=== PATIENT | female | born 1960 | race Caucasian/White ===

== ENCOUNTER 2024-03-04 09:44 | Inpatient (IN) | payer MEDICARE, MEDICAID, SELFPAY ==
[2024-03-04] VITALS (14 sets, daily range): BP systolic 124–143; BP diastolic 57–76; PULSE 65–87; RESP 16–26; TEMP 36.2–36.9; O2SAT 2–96; BMI 43.3; BMI 43.6
--- NOTE | ~2024-03-04 | XR_ITS ---
EXAMINATION: XR CHEST CLINICAL INFORMATION: SOB COMPARISON: None available. TECHNIQUE: Frontal view of the chest was obtained. FINDINGS: Cardiomegaly. Prominent pulmonary vasculature. No focal consolidation. No pleural effusion. No pneumothorax. No acute osseous abnormality. XR/XR chest 1V IMPRESSION: Cardiomegaly and prominent pulmonary vasculature. Electronically signed by: Neri Mcdowell MD 03/04/2024 11:42 AM [facility] [place]
--- NOTE | ~2024-03-04 | CT_ITS ---
EXAMINATION: CT ANGIOGRAM OF THE CHEST WITH AND WITHOUT CONTRAST (CT PULMONARY ANGIOGRAM FOR PE) CLINICAL INFORMATION: sob COMPARISON: None available. TECHNIQUE: Prior to contrast administration, noncontrast localization images were obtained. Subsequently, multidetector volumetric imaging was performed from the thoracic inlet to below the diaphragms following the administration of 65 mL Omnipaque 350 intravenous contrast. No contrast reaction reported Sagittal, coronal, and MIP oblique sagittal reformatted images were obtained on the CT workstation, uploaded to PACS, and reviewed. This CT examination was performed using dose optimization techniques as appropriate, variously including the following: *Automated exposure control *Adjustment of mA and/or kV according to patient size (this includes techniques or standardized protocols for targeted exams where dose is matched to indication/reason for exam; i.e. extremities or head) *Use of iterative reconstruction technique Total exam dose-length product 380 mGy-cm FINDINGS: QUALITY OF STUDY/CONTRAST BOLUS: Satisfactory. PULMONARY ARTERIES: No pulmonary emboli. THORACIC AORTA: No aneurysm. LUNG: No focal consolidation, nodules or masses. There is mild bronchial wall thickening in the bilateral perihilar regions extending into the lung parenchyma most consistent with underlying bronchitis/reactive airway disease. Segmental areas of atelectasis in the bilateral lower lobes PLEURA: No pleural effusion or pneumothorax. MEDIASTINUM: Normal heart size. No pericardial effusion. No hilar or mediastinal lymphadenopathy. No evidence of septal bowing or right heart strain. CORONARY ARTERY CALCIFICATION: None visualized on this study. CHEST WALL/AXILLA: No axillary or internal mammary lymphadenopathy. OSSEOUS STRUCTURES: No acute or suspicious osseous abnormality. UPPER ABDOMEN: Unremarkable. No reflux of contrast into the hepatic veins to suggest elevated right heart pressures. CT/CT angio chest PE protocol IMPRESSION: 1. No evidence of pulmonary embolism. 2. Bronchial wall thickening in the bilateral perihilar regions extending into the lung parenchyma most consistent with underlying bronchitis/reactive airway disease. VTE: negative. Electronically signed by: Jake Nesbitt MD 03/07/2024 04:50 PM EST
--- NOTE | 2024-03-04 10:00 | ECG_ITS ---
Test Reason : chest pain Blood Pressure : / mmHG Vent. Rate : 075 BPM Atrial Rate : 075 BPM P-R Int : 138 ms QRS Dur : 082 ms QT Int : 362 ms P-R-T Axes : 085 034 039 degrees QTc Int : 404 ms Normal sinus rhythm Normal ECG No previous ECGs available Referred By: Shahram Glover Electronically Signed By:MATTHEW LYNN MD
--- NOTE | 2024-03-04 10:00 | ED.SOB ---
HPI - SOB/Dyspnea General Chief Complaint: Upper Respiratory Symptoms Stated Complaint: SOB,93% 6LPM,OLLIE WHEEZE,DUO,FROM DR OFFICE PER EMS Time Seen by Provider: 03/04/24 09:52 Source: patient Mode of arrival: ambulatory Limitations: no limitations History of Present Illness HPI Narrative: this is a 63 years old patient presented to the emergency department with a chief complaint of shortness of breath she was brought here by the medical radiation therapist, she came from the doctor office she had an O2 sat of 85% at the Office. She was given an albuterol treatment Solu-Medrol. She has history of COPD she smokes daily MD elicited complaint: shortness of breath and cough Pertinent past history: COPD Onset (ago): day(s) Timing: constant Severity: moderate Exacerbating factors: nothing Relieving factors: nothing Known history of: COPD Associated symptoms: denies other symptoms Related Data Home oxygen amount: none Home Medications ?Medication ?Instructions ?Recorded ?Confirmed albuterol sulfate 90 mcg/actuation 1 puff inhalation Q4H PRN 03/04/24 03/04/24 aerosol inhaler Shortness Of Breath Or Wheezing aripiprazole 30 mg tablet 30 mg PO DAILY 03/04/24 03/04/24 atorvastatin 10 mg tablet 10 mg PO DAILY 03/04/24 03/04/24 citalopram 20 mg tablet 20 mg PO DAILY 03/04/24 03/04/24 divalproex 500 mg tablet,extended 1,000 mg PO BEDTIME 03/04/24 03/04/24 release 24 hr fluticasone furoate 200 1 ea inhalation DAILY 03/04/24 03/04/24 mcg-vilanterol 25 mcg/dose inhalation powder (Breo Ellipta) furosemide 20 mg tablet 20 mg PO DAILY 03/04/24 03/04/24 meloxicam 7.5 mg tablet 7.5 mg PO DAILY 03/04/24 03/04/24 prazosin 1 mg capsule 1 mg PO BID 03/04/24 03/04/24 tiotropium bromide 1.25 2 puff inhalation DAILY 03/04/24 03/04/24 mcg/actuation mist for inhalation (Spiriva Respimat) Allergies Allergy/AdvReac Type Severity Reaction Status Date / Time chocolate Allergy Unknown Verified 03/04/24 09:56 Review of Systems Constitutional: Constitutional: Reports no additional constitutional complaints ENT: Reports system reviewed and no additional complaints, except as documented Respiratory: Respiratory: Reports no additional respiratory complaints, Reports chest congestion and Reports cough Integumentary/Breasts: Skin/Breast: Reports system reviewed and no additional complaints, except as docu [facility] Past Medical History [facility] Narrative: copd not on 02 Social History Social History (Updated 03/04/24 @ 11:53 by Silvana Ventura NP) Patient Tobacco Use Status: Current everyday Tobacco user Tobacco use type: Cigarette Cigarette Packs Per Day: 1 Substance Use Type: Marijuana Physical Exam Vital Signs: Vital Signs: Last Vital Signs Temp 98.1 F 03/04/24 12:48 Pulse 79 03/04/24 12:48 Resp 22 H 03/04/24 12:48 BP 133/69 03/04/24 12:48 Pulse Ox 2 L 03/04/24 12:48 O2 Del Method Oxymask 03/04/24 12:48 O2 Flow Rate 4 03/04/24 12:48 BMI result Body Mass Index 43.3 no distress Const: General: cooperative Nutritional Appearance: well nourished Orientation/consciousness: patient oriented x3 Limitations: no limitations HEENT: Head: Yes normal to inspection General nose exam: Normal external nose present Face and sinus: Yes normal facial exam Mouth: Normal oral and palatal mucosa present Throat: Yes posterior oropharynx normal Neck: Neck: Yes normal visual inspection and Yes full ROM Chest: Chest palpation & inspection: normal inspection of the chest Resp: Effort & Inspection: normal respiratory effort Auscultation: clear to auscultation bilaterally Cardio: Jugular venous distension: no JVD Rate: regular rate Rhythm: regular rhythm GI: Inspection: Yes normal to inspection Palpation (GI): Soft to palpation, not firm, nontender and no guarding Percussion: Yes normal to percussion Skin: General skin exam: no rashes or lesions noted and elasticity normal Rashes: no rashes Neuro: General: patient oriented x3 Cranial nerves: Yes CN's II-XII intact bilaterally Course Reevaluation(s) Reevaluation #1: she is feeling better Time: 11:02 Medications Administered Generic Name Dose Route Start Last Admin Trade Name Freq PRN Reason Stop Dose Admin Enoxaparin Sodium 40 mg 03/04/24 12:00 03/04/24 12:47 Enoxaparin Sodium 40 Mg/0.4 Ml Syringe SUBCUT 40 mg Q24H MILLIE Administration Doxycycline Hyclate 100 mg/ 250 mls @ 166.67 mls/hr 03/04/24 12:30 03/04/24 14:20 Sodium Chloride IV Infused Q12H MILLIE Infusion Methylprednisolone Sodium Succinate 40 mg 03/04/24 13:00 03/04/24 12:47 Methylprednisolone Sod Succ 40 Mg/Ml Vial IVPUSH 40 mg Q12H MILLIE Administration Discontinued Medications Generic Name Dose Route Start Last Admin Trade Name Freq PRN Reason Stop Dose Admin Albuterol Sulfate 2.5 mg/ 0 mg 03/04/24 10:16 03/04/24 10:22 Albuterol/Ipratropium 3 ml INHALE 03/04/24 10:17 1 dose ONCE ONE Administration Medical Decision Making Medical Decision Making [facility] Narrative: presented c/o SOB found hypoxic wheezing will get cxr labs/bronc protocol Differential Diagnosis Differential Diagnoses: The differential diagnosis associated with the presentation includes COPD ex/bronchitis/pneumonia Admission/Observation Consideration of admission/observation: Escalation of care including admission/observation considered Consult Healthcare Provider Management of the patient was discussed with: Hospitalist Lab Data [facility] Lab Attestation statement: I reviewed the patient's lab results. 03/04/24 10:16 03/04/24 10:16 Labs: Lab Results 03/04/24 03/04/24 03/04/24 Range/Units 10:15 10:16 10:21 WBC 10.5 (4.8-10.8) X10*3/uL RBC 4.27 (4.20-5.50) X10*6/uL Hgb 14.8 (12.0-16.0) g/dl Hct 43.4 (37.0-47.0) % MCV 101.6 H (80.0-98.0) fL MCH 34.7 H (27.0-33.0) pg MCHC 34.1 (31.0-35.0) g/dl RDW 14.0 (11.0-16.0) % Plt Count 171 (160-400) X10*3/uL MPV 10.6 (9.4-12.3) fL Immature Gran % (Auto) Cancelled Neut % (Auto) Cancelled Lymph % (Auto) Cancelled Moffat % (Auto) Cancelled Eos % (Auto) Cancelled Baso % (Auto) Cancelled Lymph # (Auto) Cancelled Moffat # (Auto) Cancelled Eos # (Auto) Cancelled Baso # (Auto) Cancelled Abs Immat Gran (auto) Cancelled Absolute Neuts (auto) Cancelled Absolute Nucleated RBC 0.000 (0.0-0.012) X10*3/uL Nucleated RBC % (auto) 0.0 (0.0-0.2) /100WBC Neutrophils % (Manual) 79 H (45-73) % Band Neutrophils % 12 H (3-5) % Lymphocytes % (Manual) 2 L (20-40) % Atypical Lymphs % (Man) 3 (0-6) % Monocytes % (Manual) 4 (2-11) % Abs Neuts (Manual) 9.6 H (2.0-8.3) X10*3/uL Lymphocytes # (Manual) 0.2 L (1.2-4.9) X10*3/uL Atyp Lymphs # (Manual) 0.3 x10*3/uL Monocytes # (Manual) 0.4 (0.1-1.2) X10*3/uL Toxic Vacuolation PRESENT Platelet Estimate DECREASED (NORMAL) Plt Morphology Comment NORMAL RBC Morphology NORMAL VBG pH 7.42 (7.32-7.43) VBG pCO2 47 mmHg VBG pO2 136 mmHg VBG HCO3 31 H (22-26) mmol/L VBG O2 Saturation 99.0 % VBG Base Excess 5.6 mmol/L Sodium 136 (135-145) mmol/L Potassium 4.4 (3.3-5.1) mmol/L Chloride 99 (96-108) mmol/L Carbon Dioxide 31 H (22-29) mmol/L Anion Gap 10 L (12-20) BUN 13 (9-16) mg/dL Creatinine 0.59 (0.5-1.4) mg/dL Estim Creat Clear Calc 116.8 Estimated GFR > 60 Random Glucose 218 H (60-115) mg/dL Estimat Average Glucose 126 mg/dL Hemoglobin A1c % 6.0 (<6.0) % Calcium 9.7 (8.4-10.2) mg/dL Total Bilirubin 0.4 (0.0-1.0) mg/dL AST 25 (5-31) U/L ALT 24 (0-31) U/L Alkaline Phosphatase 81 (39-117) U/L Troponin I High Sens 3.5 (<3.5-17.0) ng/L B-Natriuretic Peptide 62 (<100) pg/mL Total Protein 6.8 (6.5-8.0) g/dL Albumin 3.9 (3.5-5.0) g/dL Influenza Type A (PCR) NEGATIVE (Negative) Influenza Type B (PCR) NEGATIVE (Negative) RSV RNA Qual (PCR) NEGATIVE (Negative) SARS-CoV-2 RNA (RT-PCR) NEGATIVE (Negative) Independent Interpretation I performed an independent interpretation of an: Plain X-Ray Radiology Impression Discussion of test interpretation with radiology: I have reviewed the radiologist's reading. Independent Historian Clinical information obtained from an independent historian. History obtained from or confirmed by: EMS ems Chronic Conditions COPD Critical Care Time Critical Care Time Critical Care Time: Yes Total Critical Care Time: 60 Attestation: multiple nebs back to back Discharge Plan Discharge Clinical Impression: Acute exacerbation of chronic obstructive pulmonary disease, Hypoxia Patient Disposition: Admitted As Inpatient
[2024-03-04] MEDS: Albuterol Sulfate 2.5 MG, Albuterol/Iprat 2.5/0.5MG 3 ML 3 ML INHALE (10:22)
[2024-03-04 10:23] LABS: Hematocrit 43.4 % (37.0-47.0); Hemoglobin 14.8 g/dl (12.0-16.0); Mean Corpuscular HGB Conc 34.1 g/dl (31.0-35.0); Mean Corpuscular Hemoglobin 34.7 pg (27.0-33.0); Mean Corpuscular Volume 101.6 fL (80.0-98.0); Mean Platelet Volume 10.6 fL (9.4-12.3); Platelet Count 171 X10*3/uL (160-400); Red Blood Count 4.27 X10*6/uL (4.20-5.50); Venous Blood Gas Refer to POC result; White Blood Count 10.5 X10*3/uL (4.8-10.8)
[2024-03-04 10:26] LABS: VBG Base Excess 5.6 mmol/L; VBG HCO3 31 mmol/L (22-26); VBG pCO2 47 mmHg; VBG pH 7.42 (7.32-7.43); VBG pO2 136 mmHg
[2024-03-04 10:42] LABS: Alanine Aminotransferase 24 U/L (0-31); Albumin Level 3.9 g/dL (3.5-5.0); Alkaline Phosphatase 81 U/L (39-117); Anion Gap 10 (12-20); Aspartate Amino Transferase 25 U/L (5-31); Bilirubin Total 0.4 mg/dL (0.0-1.0); Blood Urea Nitrogen 13 mg/dL (9-16); Calcium 9.7 mg/dL (8.4-10.2); Carbon Dioxide 31 mmol/L (22-29); Chloride 99 mmol/L (96-108); Creatinine Clr Calc Pharmacy 116.8; Estimated Glomerular Filt Rate > 60; Glucose Random 218 mg/dL (60-115); Potassium 4.4 mmol/L (3.3-5.1); Sodium 136 mmol/L (135-145); Total Protein 6.8 g/dL (6.5-8.0)
[2024-03-04 10:46] LABS: B Type Natriuretic Peptide 62 pg/mL (<100)
[2024-03-04 10:48] LABS: Troponin-I High Sensitivity 3.5 ng/L (<3.5-17.0)
[2024-03-04 10:49] LABS: Neutrophils Percent Manual 79 % (45-73)
[2024-03-04 10:50] LABS: Atypical Lymph Absolute Manual 0.3 x10*3/uL; Atypical Lymphs Percent Manual 3 % (0-6); Band Neutrophils Percent 12 % (3-5); Lymphocytes Absolute Manual 0.2 X10*3/uL (1.2-4.9); Lymphocytes Percent Manual 2 % (20-40); Monocytes Absolute Manual 0.4 X10*3/uL (0.1-1.2); Monocytes Percent Manual 4 % (2-11); Neutrophils Absolute Manual 9.6 X10*3/uL (2.0-8.3)
[2024-03-04 10:51] LABS: Platelet Estimate DECREASED (NORMAL); Platelet Morphology Comment NORMAL; RBC Morphology NORMAL; Toxic Vacuolation PRESENT
[2024-03-04 11:03] LABS: Influenza A PCR NEGATIVE (Negative); Influenza B PCR NEGATIVE (Negative); Resp Syncy Virus RNA Qual PCR NEGATIVE (Negative); SARS COV2 PCR INHOUSE NEGATIVE (Negative)
--- NOTE | 2024-03-04 11:04 | PC.NURSE ---
Pt alert and oriented. States feeling unwell x 3 days, At MD office today and sent here for further evaluation. Recent completed course of steroids. Pt denies pain or discomfort. LS diminished throughout with exp wheezes and crackles heard to RLL. Tachypneic 24-28 and shallow.. Pt falls asleep easily but arousable to voice, h/o sleep apnea. Skin color sallow, warm and dry. NSR on tele. Placed on Oxymask for better oxygenation. Awaits additional updraft. Hospitalist at bedside.
--- NOTE | 2024-03-04 11:35 | PM.IMHP ---
History of Present Illness Date of Service: 03/04/24 Chief Complaint: shortness of breath, and wheezing 63 yo female who has a PMH of asthma in childhood, COPD (not on home oxygen), CRISS (uses cPAP), smokes cigarettes daily, smokes marijuana weekly, anxiety and depression, who presents via EMS from PCP office for hypoxia. Pt reports went to PCP office for labs and was noted to be hypoxic on assessment, states she has been having increased work of breathing, productive cough and wheeze x 3 days. States it is best during the day, but at night becomes worse, has been using her inhalers at home to no avail, no other alleviating factors tried. Has been unable to tolerate smoking x 2 days, although tried today prior to arrival and yesterday as well. Reports possible sick contact, son also has URI symptoms similar to hers. Denies any hemoptysis, N/V/D, fever, chills or chest pain, denies any lightheaded or dizziness. Endorses some congestion in her chest. Review of Systems Review of Systems: Denies fatigue, weight loss, denies fever, chills, N/V/D. Denies changes to sleep, reports CRISS (uses cpap) Constitutional: Constitutional: Reports as per HPI Eyes: Comments: denies any visual changes or disturbances ENT: Comments: denies headache, denies changes or distrubances to hearing, denies vertigo, rhinorrhea, or sore throat. Endorses chronic chest congestion. Cardiovascular: Comments: denies palpitations, lightheadedness, diaphoresis, orthopnea, edema, or CP Respiratory: Comments: Endorses productive cough with white sputum, dyspnea, and wheeze. Denies hemoptysis, or pleuritic pain Gastrointestinal: Comments: Endorses constipation, denies N/V/D, denies bowel changes, no changes to appetite, and denies any bleeding Genitourinary: Comments: denies any urinary changes or difficulties, denies frequency, urgency, retention, pain/burning, or hematuria Musculoskeletal: Comments: denies back pain, or swelling of any joints, denies any recent falls Integumentary/Breasts: Comments: denies any rashes, itching, dryness, color changes, wounds Neurologic: Comments: denies seizures, denies dizziness, syncope/fainting, numbness/tingling or tremors Psychiatric: Comments: reports chronic anxiety, and depression, denies any changes to memory Endocrine: Comments: denies temperature intolerances, sweating, polyuria/dipsia, or bleeding. Allergic/Immunologic: Comments: Endorses allergy to chocolate- causes face to breakout PMFSH Functional capacity: independent ambulation Pertinent family history: Son- smoker, marijuana user Social History (Updated 03/04/24 @ 11:53 by Silvana Ventura NP) Patient Tobacco Use Status: Current everyday Tobacco user Tobacco use type: Cigarette Cigarette Packs Per Day: 1 Smoked in Last 30 Days: Yes Use of substances other than those prescribed or required for medical reasons: Yes Substance Use Type: Marijuana Substance Use Frequency: Chronic Longstanding Last Used Substance: Days (ago) Currently Displaying Signs/Symptoms of Drug Intoxication Withdrawal: No Advance Directives: No Advance Directives Information Provided: Yes Patient : No Ebola Risk: Travel/Contact With Anyone From Affected Area/s: No Has Patient Experienced Ebola Symptoms: No History of recent travel: No Recent Travel in [facility] Within the Last 8 Weeks: No Recent Out of Country Travel Within the Last 8 Weeks: No Meds Allergies Allergy/AdvReac Type Severity Reaction Status Date / Time chocolate Allergy Unknown Verified 03/04/24 09:56 Active Medications: Current Medications Acetaminophen (Acetaminophen 325 Mg Tablet) 650 mg PO Q6H PRN PRN Reason: Pain, Mild (Pain Scale 1-3), fever or headache Calcium Carbonate (Calcium Carbonate 750 Mg Tab.Chew) 750 mg PO Q4H PRN PRN Reason: Heartburn Enoxaparin Sodium (Enoxaparin Sodium 40 Mg/0.4 Ml Syringe) 40 mg SUBCUT Q24H [facility] Magnesium Hydroxide (Milk Of Magnesia 30 Ml Oral.Susp) 30 ml PO DAILY PRN PRN Reason: Constipation Melatonin (Melatonin 3 Mg Tablet) 6 mg PO BEDTIME PRN PRN Reason: Insomnia Ondansetron HCl (Ondansetron Hcl 4 Mg/2 Ml Vial) 4 mg IVPUSH Q8H PRN PRN Reason: Nausea and Vomiting Sodium Chloride (0.9 % Sodium Chloride Flush 3 Ml Syringe) 3 ml IVFLUSH QSHIFT [facility] Home Medications ?Medication ?Instructions ?Recorded ?Confirmed ?Last Taken ?Type albuterol sulfate 90 mcg/actuation inhalation 03/04/24 Unknown History aerosol inhaler aripiprazole 30 mg tablet 30 mg PO DAILY 03/04/24 Unknown History atorvastatin 10 mg tablet 10 mg PO DAILY 03/04/24 Unknown History citalopram 20 mg tablet 20 mg PO DAILY 03/04/24 Unknown History divalproex 500 mg tablet,extended 1,000 mg PO BEDTIME 03/04/24 Unknown History release 24 hr fluticasone furoate 200 1 ea inhalation DAILY 03/04/24 Unknown History mcg-vilanterol 25 mcg/dose inhalation powder (Breo Ellipta) furosemide 20 mg tablet 20 mg PO DAILY 03/04/24 Unknown History meloxicam 7.5 mg tablet 7.5 mg PO DAILY 03/04/24 Unknown History prazosin 1 mg capsule 1 mg PO BID 03/04/24 Unknown History prednisone 50 mg tablet 50 mg PO DAILY 03/04/24 Unknown History tiotropium bromide 1.25 2 puff inhalation DAILY 03/04/24 03/04/24 Unknown History mcg/actuation mist for inhalation (Spiriva Respimat) Physical Exam Vital Signs and Narrative: Vital Signs: Last Vital Signs Temp 98.5 F 03/04/24 09:54 Pulse 87 03/04/24 11:03 Resp 26 H 03/04/24 11:03 BP 131/57 L 03/04/24 11:03 Pulse Ox 90 L 03/04/24 11:03 O2 Del Method Oxymask 03/04/24 11:03 O2 Flow Rate 3 03/04/24 11:03 BMI result Body Mass Index 43.3 Const: General: cooperative, alert, awake and acute distress (tachynpnea with speaking, RR 20-22, 3lpm via facemask- sat 90%) moderate and respiratory Nutritional Appearance: obese Orientation/consciousness: patient oriented x3 HEENT: Head: Yes normal to inspection Ears: hearing grossly normal bilaterally General nose exam: Normal external nose present Eyes: General: appearance normal, both eyes and all related structures Pupils: Equal, round and reactive pupils present EOM: EOMs intact bilaterally Neck: Yes normal visual inspection Resp: Effort & Inspection: audible wheezes, Actively coughing Quality: productive and tachypneic Auscultation: wheezes scattered wheezes and throughout and diminished lung sounds diffuse Cardio: Jugular venous distension: no JVD Rate: regular rate Rhythm: regular rhythm Heart sounds: S1 normal heart sound present Peripheral pulses: dorsalis pedis present GI: Inspection: Yes normal to inspection Auscultation: normal bowel sounds Skin: General skin exam: no rashes or lesions noted, elasticity normal and turgor normal Trauma: no lacerations or abrasions Wounds: no wounds Nails: yellow and thickened Neuro: General: patient oriented x3 and Unable to assess gait Cranial nerves: Yes CN's II-XII intact bilaterally and Yes Equal, round and reactive pupils present Cognition (Neuro): normal cognition Gait exam (Neuro): Unable to assess gait Motor exam (neuro): 5/5 motor strength present throughout Extrem: General: Yes normal to inspection, Yes full ROM and Yes capillary refill normal Results Labs 03/04/24 10:16 03/04/24 10:16 Labs: Laboratory Results - last 24 hr 03/04/24 03/04/24 03/04/24 10:15 10:16 10:21 MCV 101.6 H MCH 34.7 H MCHC 34.1 RDW 14.0 Plt Count 171 MPV 10.6 Immature Gran % (Auto) Cancelled Neut % (Auto) Cancelled Lymph % (Auto) Cancelled Branch % (Auto) Cancelled Eos % (Auto) Cancelled Baso % (Auto) Cancelled Lymph # (Auto) Cancelled Branch # (Auto) Cancelled Eos # (Auto) Cancelled Baso # (Auto) Cancelled Abs Immat Gran (auto) Cancelled Absolute Neuts (auto) Cancelled Absolute Nucleated RBC 0.000 Nucleated RBC % (auto) 0.0 Neutrophils % (Manual) 79 H Band Neutrophils % 12 H Lymphocytes % (Manual) 2 L Atypical Lymphs % (Man) 3 Monocytes % (Manual) 4 Abs Neuts (Manual) 9.6 H Lymphocytes # (Manual) 0.2 L Atyp Lymphs # (Manual) 0.3 Monocytes # (Manual) 0.4 Toxic Vacuolation PRESENT Platelet Estimate DECREASED Plt Morphology Comment NORMAL RBC Morphology NORMAL VBG pH 7.42 VBG pCO2 47 VBG pO2 136 VBG HCO3 31 H VBG O2 Saturation 99.0 VBG Base Excess 5.6 Anion Gap 10 L Estim Creat Clear Calc 116.8 Estimated GFR > 60 Random Glucose 218 H Calcium 9.7 Total Bilirubin 0.4 AST 25 ALT 24 Alkaline Phosphatase 81 Troponin I High Sens 3.5 B-Natriuretic Peptide 62 Total Protein 6.8 Albumin 3.9 Influenza Type A (PCR) NEGATIVE Influenza Type B (PCR) NEGATIVE RSV RNA Qual (PCR) NEGATIVE SARS-CoV-2 RNA (RT-PCR) NEGATIVE Assessment and Plan (1) Acute exacerbation of chronic obstructive pulmonary disease: Status: Acute Plan 63 yo female with PMH of asthma in childhood, COPD (not on home oxygen), CRISS (uses cPAP), daily smoker, anxiety and depression, presenting with acute <del>s</del>hortness of breath and wheezing, sent from PCP office for hypoxia. Acute hypoxic respiratory failure secondary to acute COPD exacerbation VBG, unremarkable CXR, negative for any focal densities or effusions, positive for cardiomegaly and prominent pulmonary vasculature EKG, NSR Oxygen supplementation as required, goal >90% Bronchodilators. Solumedrol Doxycycline New diabetes, unspecified reported by patient check A1C diabetic diet CRISS continue home CPAP Smoking encourage cessation NRT Anxiety and depression no acute exacerbation continue home meds no new interventions required Morbid obesity. BMI 43.3 Discussed importance of weight management as this may be contributing to worsening of other comorbidities DVT: Lovenox subcu Code status: Full code Quality Stroke Does the patient have a stroke diagnosis?: No VTE Prior VTE?: No VTE Risk Level:: Medical - moderate - high VTE Device Contraindication: Treatment Not Indicated VTE Drug Contraindication: N/A - Med Ordered
[2024-03-04] MEDS: methylPREDNISolone Sod Succ 40 MG/ML VIAL IVPUSH (12:47)
[2024-03-04] MEDS: Enoxaparin Sodium 40 MG/0.4 ML SYRINGE SUBCUT (12:47)
[2024-03-04 12:48] LABS: Estimated Average Glucose 126 mg/dL; Hemoglobin A1C 156.4649 umol/L
[2024-03-04] MEDS: Doxycycline Hyclate 100 MG in 0.9 % Sodium Chloride 250 ML 166.67 MG IV (12:48)
--- NOTE | 2024-03-04 14:02 | PHA.MEDREC ---
Addendum entered by Andrew Frederick 03/04/24 14:21: reviewed Original Note: Pharmacy Consult ? Medication Reconciliation Pharmacy has completed the medication reconciliation. Spoke to patient to confirm med list. patient was able to tell me what she takes. Everything she named matched claims . Patient states today was her last lose of perdnisone 50 mg.
[2024-03-04] MEDS: Albuterol Sulfate (0.083%) 2.5 MG/3 ML VIAL.NEB INHALE ×2 (15:34→19:52)
--- NOTE | 2024-03-04 18:22 | PC.NURSE ---
Pt arrived to ED overflow unit. A&Ox3, Pt able to take several steps with O2 for bed transfer. Pt currentlt eating dinner.
--- NOTE | 2024-03-04 19:26 | PC.NURSE ---
Assumed care of pt at 1900. PT a/ox4, denies pain at this time, on 6L NC at this time with HOB at 90 degree. PT appearing short of breath but notes to be improved from when PT presented to the ED. TW notes previously reported persistent wet cough during assessment. Day shift rn reports she sent a message to PT's provider for meds to address wet persistent cough. explained to pt that we are waiting for new orders. PT assisted to commode. Plan of care ongoing
--- NOTE | 2024-03-04 19:56 | PC.NURSE ---
PT work of breathing increasing. continues to decline oxymask and prefers NC. RT called to bedside, provider notified. PT completed treatments at this time.
[2024-03-04] MEDS: Milk of Magnesia 30 ML ORAL.SUSP PO (21:27)
[2024-03-04] MEDS: methylPREDNISolone Sod Succ 125 MG/2 ML VIAL IVPUSH (21:36)
[2024-03-04] MEDS: Albuterol Sulfate 5 MG, Albuterol/Iprat 2.5/0.5MG 3 ML 3 ML INHALE (21:39)
[2024-03-05] VITALS (12 sets, daily range): BP systolic 116–134; BP diastolic 58–68; PULSE 56–76; RESP 18–20; TEMP 36–36.4; O2SAT 88–96
[2024-03-05] MEDS: Doxycycline Hyclate 100 MG in 0.9 % Sodium Chloride 250 ML 166.67 MG IV ×3 (00:01→23:52)
[2024-03-05] MEDS: 0.9 % Sodium Chloride Flush 3 ML SYRINGE IVFLUSH ×3 (00:01→17:04)
[2024-03-05] MEDS: guaiFENesin DM 600/30 1 TAB TAB.ER.12H 2 TAB PO ×2 (03:44→20:13)
[2024-03-05] MEDS: Albuterol Sulfate (0.083%) 2.5 MG/3 ML VIAL.NEB INHALE ×4 (07:59→19:45)
[2024-03-05 08:01] LABS: MANUAL DIFF FLAG NO
[2024-03-05 08:12] LABS: Basophils Percent Auto 0.1 % (0-2); Hematocrit 43.8 % (37.0-47.0); Hemoglobin 14.5 g/dl (12.0-16.0); Imm Gran Abs Auto 0.08 X10*3/uL (0.00-0.03); Imm Gran Pct Auto 0.6 % (0.0-0.4); Lymphocytes Absolute Auto 0.6 X10*3/uL (1.2-4.9); Mean Corpuscular HGB Conc 33.1 g/dl (31.0-35.0); Mean Corpuscular Hemoglobin 34.5 pg (27.0-33.0); Mean Corpuscular Volume 104.3 fL (80.0-98.0); Mean Platelet Volume 11.4 fL (9.4-12.3); Monocytes Absolute Auto 0.7 X10*3/uL (0.1-1.2); Monocytes Percent Auto 5.2 % (2-11); Neutrophils Absolute Auto 11.2 x10*3/uL (2.0-8.3); Neutrophils Percent Auto 89.1 % (45-73); Platelet Count 186 X10*3/uL (160-400); Red Cell Distribution Width 13.9 % (11.0-16.0); White Blood Count 12.5 X10*3/uL (4.8-10.8)
[2024-03-05] MEDS: methylPREDNISolone Sod Succ 40 MG/ML VIAL IVPUSH ×2 (08:12→20:15)
[2024-03-05] MEDS: Escitalopram Oxalate 10 MG TABLET PO (08:12)
[2024-03-05] MEDS: ARIPiprazole 30 MG TABLET PO (08:12)
[2024-03-05] MEDS: Atorvastatin Calcium 10 MG TABLET PO (08:12)
[2024-03-05] MEDS: Furosemide 20 MG TABLET PO (08:12)
[2024-03-05] MEDS: Prazosin HCL 1 MG CAPSULE PO ×2 (08:21→20:13)
[2024-03-05 08:45] LABS: Anion Gap 13 (12-20); Blood Urea Nitrogen 17 mg/dL (9-16); Carbon Dioxide 32 mmol/L (22-29); Chloride 97 mmol/L (96-108); Creatinine Clr Calc Pharmacy 117.2; Estimated Glomerular Filt Rate > 60; Glucose Random 154 mg/dL (60-115); Magnesium 2.2 mg/dL (1.6-2.6); Potassium 4.6 mmol/L (3.3-5.1); Sodium 137 mmol/L (135-145)
--- NOTE | 2024-03-05 08:53 | P.PNIM_ITS ---
Subjective Subjective Date of Service: 03/05/24 Interval History: seen for follow up of acute hypoxic respiratory failure secondary to acute COPD exacerbation Reports shortness of breath is improving some, however still need the 02, and formerly [facility] Constitutional Constitutional: Reports no additional constitutional complaints Cardiovascular Cardiovascular: Reports lightheadedness and Reports dyspnea on exertion SOB on exertion and lightheadedness when short of breath with exertion Respiratory Respiratory: Reports cough, Reports dyspnea on exertion and Reports wheezing Gastrointestinal Gastrointestinal: Reports constipation Allergic/Immunologic Allergic/Immunologic: Reports wheezing Physical Exam 2 Vital Signs: Vital Signs: Last Vital Signs Temp 96.8 F 03/05/24 07:09 Pulse 72 03/05/24 08:02 Resp 18 03/05/24 08:02 BP 129/66 03/05/24 08:21 Pulse Ox 94 03/05/24 07:09 O2 Del Method Nasal Cannula 03/05/24 07:09 O2 Flow Rate 6 03/05/24 07:09 BMI result Body Mass Index 43.6 Const: General: cooperative, alert, awake and tired appearing Nutritional Appearance: obese Orientation/consciousness: patient oriented x3 L imitations: physical limitations (SOB with exertion) Resp: Effort & Inspection: audible wheezes and Actively coughing A uscultation: wheezes scattered wheezes and throughout Cardio: Jugular venous distension: no JVD Rate: regular rate Rhythm: r egular rhythm Heart sounds: S1 normal heart sound present and S2 normal heart sound present Neuro: General: patient oriented x3 Objective Data Active Medications Acetaminophen (Acetaminophen 325 Mg Tablet) 650 mg PO Q6H PRN PRN Reason: Pain, Mild (Pain Scale 1-3), fever or headache Albuterol Sulfate (Albuterol Sulfate (0.083%) 2.5 Mg/3 Ml Vial.Neb) 2.5 mg INHALE RQ4H WHILE AWAKE [facility] Last Admin: 03/05/24 07:59 Dose: 2.5 mg Documented By: DIONE Aripiprazole (Aripiprazole 30 Mg Tablet) 30 mg PO DAILY [facility] Last Admin: 03/05/24 08:12 Dose: 30 mg Documented By: DENISA Atorvastatin Calcium (Atorvastatin Calcium 10 Mg Tablet) 10 mg PO DAILY [facility] Last Admin: 03/05/24 08:12 Dose: 10 mg Documented By: DENISA Calcium Carbonate (Calcium Carbonate 750 Mg Tab.Chew) 750 mg PO Q4H PRN PRN Reason: Heartburn Divalproex Sodium (Divalproex Sodium Er 500 Mg Tab.Er.24h) 1,000 mg PO BEDTIME [facility] Enoxaparin Sodium (Enoxaparin Sodium 40 Mg/0.4 Ml Syringe) 40 mg SUBCUT Q24H [facility] Last Admin: 03/04/24 12:47 Dose: 40 mg Documented By: RAJENDRA Escitalopram Oxalate (Escitalopram Oxalate 10 Mg Tablet) 10 mg PO DAILY [facility] Last Admin: 03/05/24 08:12 Dose: 10 mg Documented By: DENISA Furosemide (Furosemide 20 Mg Tablet) 20 mg PO DAILY [facility]; Protocol Last Admin: 03/05/24 08:12 Dose: 20 mg Documented By: DENISA Guaifenesin/Dextromethorphan (Guaifenesin Dm 600/30 1 Tab Tab.Er.12h) 2 tab PO BID [facility] Last Admin: 03/05/24 03:44 Dose: 2 tab Documented By: ANTJON Doxycycline Hyclate 100 mg/ (Sodium Chloride) 250 mls @ 166.67 mls/hr IV Q12H [facility] Last Infusion: 03/05/24 01:37 Dose: Infused Documented By: ANTJON Magnesium Hydroxide (Milk Of Magnesia 30 Ml Oral.Susp) 30 ml PO DAILY PRN PRN Reason: Constipation Last Admin: 03/04/24 21:27 Dose: 30 ml Documented By: MIGUEL Melatonin (Melatonin 3 Mg Tablet) 6 mg PO BEDTIME PRN PRN Reason: Insomnia Methylprednisolone Sodium Succinate (Methylprednisolone Sod Succ 40 Mg/Ml Vial) 40 mg IVPUSH Q12H [facility] Last Admin: 03/05/24 08:12 Dose: 40 mg Documented By: DENISA Naproxen (Naproxen 250 Mg Tablet) 250 mg PO BID [facility] Nicotine Polacrilex (Nicotine Polacrilex 2 Mg Gum) 2 mg BUCCAL Q1H PRN PRN Reason: Nicotine Cravings Ondansetron HCl (Ondansetron Hcl 4 Mg/2 Ml Vial) 4 mg IVPUSH Q8H PRN PRN Reason: Nausea and Vomiting Prazosin HCl (Prazosin Hcl 1 Mg Capsule) 1 mg PO BID [facility]; Protocol Last Admin: 03/05/24 08:21 Dose: 1 mg Documented By: HO.CHARTN Sodium Chloride (0.9 % Sodium Chloride Flush 3 Ml Syringe) 3 ml IVFLUSH QSHIFT [facility] Last Admin: 03/05/24 08:17 Dose: 3 ml Documented By: DENISA Labs 03/05/24 05:34 03/05/24 05:34 Labs: Laboratory Results - last 24 hr 03/04/24 03/04/24 03/04/24 10:15 10:16 10:21 MCV 101.6 H MCH 34.7 H MCHC 34.1 RDW 14.0 Plt Count 171 MPV 10.6 Immature Gran % (Auto) Cancelled Neut % (Auto) Cancelled Lymph % (Auto) Cancelled [place] % (Auto) Cancelled Eos % (Auto) Cancelled Baso % (Auto) Cancelled Lymph # (Auto) Cancelled [place] # (Auto) Cancelled Eos # (Auto) Cancelled Baso # (Auto) Cancelled Abs Immat Gran (auto) Cancelled Absolute Neuts (auto) Cancelled Absolute Nucleated RBC 0.000 Nucleated RBC % (auto) 0.0 Neutrophils % (Manual) 79 H Band Neutrophils % 12 H Lymphocytes % (Manual) 2 L Atypical Lymphs % (Man) 3 Monocytes % (Manual) 4 Abs Neuts (Manual) 9.6 H Lymphocytes # (Manual) 0.2 L Atyp Lymphs # (Manual) 0.3 Monocytes # (Manual) 0.4 Toxic Vacuolation PRESENT Platelet Estimate DECREASED Plt Morphology Comment NORMAL RBC Morphology NORMAL VBG pH 7.42 VBG pCO2 47 VBG pO2 136 VBG HCO3 31 H VBG O2 Saturation 99.0 VBG Base Excess 5.6 Anion Gap 10 L Estim Creat Clear Calc 116.8 Estimated GFR > 60 Random Glucose 218 H Estimat Average Glucose 126 Hemoglobin A1c % 6.0 Calcium 9.7 Magnesium Total Bilirubin 0.4 AST 25 ALT 24 Alkaline Phosphatase 81 Troponin I High Sens 3.5 B-Natriuretic Peptide 62 Total Protein 6.8 Albumin 3.9 Influenza Type A (PCR) NEGATIVE Influenza Type B (PCR) NEGATIVE RSV RNA Qual (PCR) NEGATIVE SARS-CoV-2 RNA (RT-PCR) NEGATIVE 03/05/24 05:34 MCV 104.3 H MCH 34.5 H MCHC 33.1 RDW 13.9 Plt Count 186 MPV 11.4 Immature Gran % (Auto) 0.6 H Neut % (Auto) 89.1 H Lymph % (Auto) 5.0 L [place] % (Auto) 5.2 Eos % (Auto) 0.0 Baso % (Auto) 0.1 Lymph # (Auto) 0.6 L [place] # (Auto) 0.7 Eos # (Auto) 0.0 Baso # (Auto) 0.0 Abs Immat Gran (auto) 0.08 H Absolute Neuts (auto) 11.2 H Absolute Nucleated RBC 0.000 Nucleated RBC % (auto) 0.0 Neutrophils % (Manual) Band Neutrophils % Lymphocytes % (Manual) Atypical Lymphs % (Man) Monocytes % (Manual) Abs Neuts (Manual) Lymphocytes # (Manual) Atyp Lymphs # (Manual) Monocytes # (Manual) Toxic Vacuolation Platelet Estimate Plt Morphology Comment RBC Morphology VBG pH VBG pCO2 VBG pO2 VBG HCO3 VBG O2 Saturation VBG Base Excess Anion Gap 13 Estim Creat Clear Calc 117.2 Estimated GFR > 60 Random Glucose 154 H Estimat Average Glucose Hemoglobin A1c % Calcium 10.0 Magnesium 2.2 Total Bilirubin AST ALT Alkaline Phosphatase Troponin I High Sens B-Natriuretic Peptide Total Protein Albumin Influenza Type A (PCR) Influenza Type B (PCR) RSV RNA Qual (PCR) SARS-CoV-2 RNA (RT-PCR) Assessment and Plan (1) Acute exacerbation of chronic obstructive pulmonary disease: Status: Acute Plan 63 yo female with PMH of asthma in childhood, COPD (not on home oxygen), CRISS (uses cPAP), daily smoker, anxiety and depression, here with acute respiratory failure secondary to COPD exacerbation. Acute hypoxic respiratory failure secondary to acute COPD exacerbation Oxygen supplementation as required, goal >90% continue Bronchodilators. continue IV Solumedrol Doxycycline New diabetes type 2, diet controlled reported by patient A1C 6.0, no additional interventions at this time continue diabetic diet hyperglycemia from steroid use CRISS continue home CPAP Smoking encourage cessation NRT Anxiety and depression no acute exacerbation continue home meds no new interventions required Morbid obesity. BMI 43.3 Discussed importance of weight management as this may be contributing to worsening of other comorbidities DVT: Lovenox subcu Code status: Full code Quality Stroke Does the patient have a stroke diagnosis?: No VTE Prior VTE?: No VTE Risk Level:: Medical - moderate - high VTE Device Contraindication: Treatment Not Indicated VTE Drug Contraindication: N/A - Med Ordered
--- NOTE | 2024-03-05 09:15 | P.PNIM_ITS ---
Subjective Subjective Date of Service: 03/05/24 Interval History: seen for follow up of left flank/left suprapubic, R CVA pain secondary to bilateral renal stones Reports pain is improving, still using the PRN pain medicine Review of Systems Review of Systems: Yes all other systems are reviewed and are negative Constitutional Constitutional: Reports no additional constitutional complaints Gastrointestinal Gastrointestinal: Reports no additional gastrointestinal complaints Genitourinary penile itching, more during urination Neurologic Neurologic: Reports system reviewed and no additional complaints, except as documented Physical Exam 2 Vital Signs: Vital Signs: Last Vital Signs Temp 96.8 F 03/05/24 07:09 Pulse 72 03/05/24 08:02 Resp 18 03/05/24 08:02 BP 129/66 03/05/24 08:21 Pulse Ox 91 L 03/05/24 08:59 O2 Del Method Nasal Cannula 03/05/24 08:59 O2 Flow Rate 4 03/05/24 08:59 BMI result Body Mass Index 43.6 Const: General: no acute distress, alert and awake Nutritional Appearance: thin Orientation/consciousness: patient oriented x3 Limitations: no limitations Resp: Effort & Inspection: normal respiratory effort and able to speak in complete sentences Auscultation: clear to auscultation bilaterally Cardio: Jugular venous distension: no JVD Rate: regular rate Rhythm: r egular rhythm Heart sounds: S1 normal heart sound present and S2 normal heart sound present GI: Inspection: Yes normal to inspection Auscultation: normal bowel sounds : General: Yes CVA tenderness bilateral Back/Spine/Pelvis: Back: CVA tenderness Neuro: General: patient oriented x3 Objective Data Active Medications Acetaminophen (Acetaminophen 325 Mg Tablet) 650 mg PO Q6H PRN PRN Reason: Pain, Mild (Pain Scale 1-3), fever or headache Albuterol Sulfate (Albuterol Sulfate (0.083%) 2.5 Mg/3 Ml Vial.Neb) 2.5 mg INHALE RQ4H WHILE AWAKE [facility] Last Admin: 03/05/24 07:59 Dose: 2.5 mg Documented By: DIONE Aripiprazole (Aripiprazole 30 Mg Tablet) 30 mg PO DAILY [facility] Last Admin: 03/05/24 08:12 Dose: 30 mg Documented By: DENISA Atorvastatin Calcium (Atorvastatin Calcium 10 Mg Tablet) 10 mg PO DAILY [facility] Last Admin: 03/05/24 08:12 Dose: 10 mg Documented By: DENISA Calcium Carbonate (Calcium Carbonate 750 Mg Tab.Chew) 750 mg PO Q4H PRN PRN Reason: Heartburn Divalproex Sodium (Divalproex Sodium Er 500 Mg Tab.Er.24h) 1,000 mg PO BEDTIME [facility] Enoxaparin Sodium (Enoxaparin Sodium 40 Mg/0.4 Ml Syringe) 40 mg SUBCUT Q24H [facility] Last Admin: 03/04/24 12:47 Dose: 40 mg Documented By: RAJENDRA Escitalopram Oxalate (Escitalopram Oxalate 10 Mg Tablet) 10 mg PO DAILY [facility] Last Admin: 03/05/24 08:12 Dose: 10 mg Documented By: DENISA Furosemide (Furosemide 20 Mg Tablet) 20 mg PO DAILY [facility]; Protocol Last Admin: 03/05/24 08:12 Dose: 20 mg Documented By: DENISA Guaifenesin/Dextromethorphan (Guaifenesin Dm 600/30 1 Tab Tab.Er.12h) 2 tab PO BID [facility] Last Admin: 03/05/24 03:44 Dose: 2 tab Documented By: NANO Doxycycline Hyclate 100 mg/ (Sodium Chloride) 250 mls @ 166.67 mls/hr IV Q12H [facility] Last Infusion: 03/05/24 01:37 Dose: Infused Documented By: ANTJON Magnesium Hydroxide (Milk Of Magnesia 30 Ml Oral.Susp) 30 ml PO DAILY PRN PRN Reason: Constipation Last Admin: 03/04/24 21:27 Dose: 30 ml Documented By: TUMASY Melatonin (Melatonin 3 Mg Tablet) 6 mg PO BEDTIME PRN PRN Reason: Insomnia Methylprednisolone Sodium Succinate (Methylprednisolone Sod Succ 40 Mg/Ml Vial) 40 mg IVPUSH Q12H [facility] Last Admin: 03/05/24 08:12 Dose: 40 mg Documented By: DENISA Naproxen (Naproxen 250 Mg Tablet) 250 mg PO BID [facility] Nicotine Polacrilex (Nicotine Polacrilex 2 Mg Gum) 2 mg BUCCAL Q1H PRN PRN Reason: Nicotine Cravings Ondansetron HCl (Ondansetron Hcl 4 Mg/2 Ml Vial) 4 mg IVPUSH Q8H PRN PRN Reason: Nausea and Vomiting Prazosin HCl (Prazosin Hcl 1 Mg Capsule) 1 mg PO BID [facility]; Protocol Last Admin: 12/10/24 08:21 Dose: 1 mg Documented By: DENISA Sodium Chloride (0.9 % Sodium Chloride Flush 3 Ml Syringe) 3 ml IVFLUSH QSHIFT [facility] Last Admin: 03/05/24 08:17 Dose: 3 ml Documented By: DENISA Labs 03/05/24 05:34 03/05/24 05:34 Labs: Laboratory Results - last 24 hr 03/04/24 03/04/24 03/04/24 10:15 10:16 10:21 MCV 101.6 H MCH 34.7 H MCHC 34.1 RDW 14.0 Plt Count 171 MPV 10.6 Immature Gran % (Auto) Cancelled Neut % (Auto) Cancelled Lymph % (Auto) Cancelled [place] % (Auto) Cancelled Eos % (Auto) Cancelled Baso % (Auto) Cancelled Lymph # (Auto) Cancelled [place] # (Auto) Cancelled Eos # (Auto) Cancelled Baso # (Auto) Cancelled Abs Immat Gran (auto) Cancelled Absolute Neuts (auto) Cancelled Absolute Nucleated RBC 0.000 Nucleated RBC % (auto) 0.0 Neutrophils % (Manual) 79 H Band Neutrophils % 12 H Lymphocytes % (Manual) 2 L Atypical Lymphs % (Man) 3 Monocytes % (Manual) 4 Abs Neuts (Manual) 9.6 H Lymphocytes # (Manual) 0.2 L Atyp Lymphs # (Manual) 0.3 Monocytes # (Manual) 0.4 Toxic Vacuolation PRESENT Platelet Estimate DECREASED Plt Morphology Comment NORMAL RBC Morphology NORMAL VBG pH 7.42 VBG pCO2 47 VBG pO2 136 VBG HCO3 31 H VBG O2 Saturation 99.0 VBG Base Excess 5.6 Anion Gap 10 L Estim Creat Clear Calc 116.8 Estimated GFR > 60 Random Glucose 218 H Estimat Average Glucose 126 Hemoglobin A1c % 6.0 Calcium 9.7 Magnesium Total Bilirubin 0.4 AST 25 ALT 24 Alkaline Phosphatase 81 Troponin I High Sens 3.5 B-Natriuretic Peptide 62 Total Protein 6.8 Albumin 3.9 Influenza Type A (PCR) NEGATIVE Influenza Type B (PCR) NEGATIVE RSV RNA Qual (PCR) NEGATIVE SARS-CoV-2 RNA (RT-PCR) NEGATIVE 03/05/24 05:34 MCV 104.3 H MCH 34.5 H MCHC 33.1 RDW 13.9 Plt Count 186 MPV 11.4 Immature Gran % (Auto) 0.6 H Neut % (Auto) 89.1 H Lymph % (Auto) 5.0 L [place] % (Auto) 5.2 Eos % (Auto) 0.0 Baso % (Auto) 0.1 Lymph # (Auto) 0.6 L [place] # (Auto) 0.7 Eos # (Auto) 0.0 Baso # (Auto) 0.0 Abs Immat Gran (auto) 0.08 H Absolute Neuts (auto) 11.2 H Absolute Nucleated RBC 0.000 Nucleated RBC % (auto) 0.0 Neutrophils % (Manual) Band Neutrophils % Lymphocytes % (Manual) Atypical Lymphs % (Man) Monocytes % (Manual) Abs Neuts (Manual) Lymphocytes # (Manual) Atyp Lymphs # (Manual) Monocytes # (Manual) Toxic Vacuolation Platelet Estimate Plt Morphology Comment RBC Morphology VBG pH VBG pCO2 VBG pO2 VBG HCO3 VBG O2 Saturation VBG Base Excess Anion Gap 13 Estim Creat Clear Calc 117.2 Estimated GFR > 60 Random Glucose 154 H Estimat Average Glucose Hemoglobin A1c % Calcium 10.0 Magnesium 2.2 Total Bilirubin AST ALT Alkaline Phosphatase Troponin I High Sens B-Natriuretic Peptide Total Protein Albumin Influenza Type A (PCR) Influenza Type B (PCR) RSV RNA Qual (PCR) SARS-CoV-2 RNA (RT-PCR) Assessment and Plan Plan 45 yo male with PMH significant for crohn's, IBD, CRISS (no longer requiring CPAP), anxiety, and migraines here with left flank/left suprapubic, and R CVA pain secondary to bilateral renal stones. Left flank/left suprapubic, R CVA pain secondary to bilateral renal stones urology consulted pain improving, continue with PRN pain management, antiemetics flomax diet advanced Crohn's, IBD no current exacerbation Hold Humira Anxiety situational, PRN anxiolytics continue home medications CRISS per pt report resolved, not on cpap migraines no current exacerbation Code status: Full DVT: Lovenox Quality Stroke Does the patient have a stroke diagnosis?: No VTE Prior VTE?: No VTE Risk Level:: Medical - moderate - high VTE Device Contraindication: Treatment Not Indicated VTE Drug Contraindication: N/A - Med Ordered
--- NOTE | 2024-03-05 09:53 | MHC.CM.PN ---
PT LIVES ALONE HAS NO SERVICES AND IS INDEPENDENT AND HAS OWN RIDE HOME DC PLAN HOME NO SERVICES
[2024-03-05] MEDS: NaPROXEN 250 MG TABLET PO ×2 (10:10→20:15)
[2024-03-05] MEDS: Milk of Magnesia 30 ML ORAL.SUSP PO (11:13)
[2024-03-05] MEDS: Enoxaparin Sodium 40 MG/0.4 ML SYRINGE SUBCUT (12:05)
[2024-03-05] MEDS: Sennosides 8.6 MG TABLET 17.2 MG PO (17:03)
[2024-03-05] MEDS: Calcium Carbonate 750 MG TAB.CHEW PO (17:36)
[2024-03-05] MEDS: Divalproex Sodium ER 500 MG TAB.ER.24H 1000 MG PO (20:13)
[2024-03-05] MEDS: Docusate Sodium 100 MG CAPSULE PO (20:13)
[2024-03-06] VITALS (9 sets, daily range): BP systolic 119–130; BP diastolic 59–65; PULSE 69–82; RESP 18–22; TEMP 36–36.8; O2SAT 89–95
[2024-03-06] MEDS: 0.9 % Sodium Chloride Flush 3 ML SYRINGE IVFLUSH ×4 (00:48→20:24)
[2024-03-06] MEDS: Atorvastatin Calcium 10 MG TABLET PO (07:32)
[2024-03-06] MEDS: Furosemide 20 MG TABLET PO (07:32)
[2024-03-06] MEDS: guaiFENesin DM 600/30 1 TAB TAB.ER.12H 2 TAB PO (07:32)
[2024-03-06] MEDS: Docusate Sodium 100 MG CAPSULE PO ×2 (07:33→20:25)
[2024-03-06] MEDS: Escitalopram Oxalate 10 MG TABLET PO (07:33)
[2024-03-06] MEDS: Prazosin HCL 1 MG CAPSULE PO ×2 (07:33→20:25)
[2024-03-06] MEDS: ARIPiprazole 30 MG TABLET PO (07:33)
[2024-03-06] MEDS: NaPROXEN 250 MG TABLET PO ×2 (07:33→20:24)
[2024-03-06] MEDS: methylPREDNISolone Sod Succ 40 MG/ML VIAL IVPUSH ×2 (07:33→20:24)
[2024-03-06] MEDS: Albuterol Sulfate (0.083%) 2.5 MG/3 ML VIAL.NEB INHALE ×4 (07:54→19:31)
--- NOTE | 2024-03-06 09:35 | P.PNIM_ITS ---
Subjective Subjective Date of Service: 03/06/24 Interval History: seen for follow up of acute hypoxic respiratory failure secondary to acute COPD exacerbation Reports shortness of breath is improving some, however still need the 02, [facility] Constitutional Constitutional: Reports no additional constitutional complaints Cardiovascular Cardiovascular: Reports lightheadedness and Reports dyspnea on exertion SOB on exertion and lightheadedness when short of breath with exertion Respiratory Respiratory: Reports cough, Reports dyspnea on exertion and Reports wheezing Gastrointestinal Gastrointestinal: Reports constipation Allergic/Immunologic Allergic/Immunologic: Reports wheezing Physical Exam 2 Vital Signs: Vital Signs: Last Vital Signs Temp 97.9 F 03/06/24 07:16 Pulse 74 03/06/24 07:56 Resp 18 03/06/24 07:56 BP 129/61 03/06/24 07:16 Pulse Ox 91 L 03/06/24 07:16 O2 Del Method Nasal Cannula 03/06/24 07:16 O2 Flow Rate 3 03/06/24 07:16 BMI result Body Mass Index 43.6 Appearing in no acute distress lung sounds exp wheezing heart regular rate rhythm, clear S1, S2 positive bowel sounds, abdomen is soft, nontender neuro patient is alert x3, no focal deficits Objective Data Active Medications Acetaminophen (Acetaminophen 325 Mg Tablet) 650 mg PO Q6H PRN PRN Reason: Pain, Mild (Pain Scale 1-3), fever or headache Albuterol Sulfate (Albuterol Sulfate (0.083%) 2.5 Mg/3 Ml Vial.Neb) 2.5 mg INHALE RQ4H WHILE AWAKE [facility] Last Admin: 03/06/24 07:54 Dose: 2.5 mg Documented By: DIONE Aripiprazole (Aripiprazole 30 Mg Tablet) 30 mg PO DAILY [facility] Last Admin: 03/06/24 07:33 Dose: 30 mg Documented By: YURY Atorvastatin Calcium (Atorvastatin Calcium 10 Mg Tablet) 10 mg PO DAILY [facility] Last Admin: 03/06/24 07:32 Dose: 10 mg Documented By: YURY Calcium Carbonate (Calcium Carbonate 750 Mg Tab.Chew) 750 mg PO Q4H PRN PRN Reason: Heartburn Last Admin: 03/05/24 17:36 Dose: 750 mg Documented By: YURY Divalproex Sodium (Divalproex Sodium Er 500 Mg Tab.Er.24h) 1,000 mg PO BEDTIME [facility] Last Admin: 03/05/24 20:13 Dose: 1,000 mg Documented By: ELISA Docusate Sodium (Docusate Sodium 100 Mg Capsule) 100 mg PO BID [facility] Last Admin: 03/06/24 07:33 Dose: 100 mg Documented By: YURY Enoxaparin Sodium (Enoxaparin Sodium 40 Mg/0.4 Ml Syringe) 40 mg SUBCUT Q24H [facility] Last Admin: 03/05/24 12:05 Dose: 40 mg Documented By: DENISA Escitalopram Oxalate (Escitalopram Oxalate 10 Mg Tablet) 10 mg PO DAILY [facility] Last Admin: 03/06/24 07:33 Dose: 10 mg Documented By: YURY Furosemide (Furosemide 20 Mg Tablet) 20 mg PO DAILY [facility]; Protocol Last Admin: 03/06/24 07:32 Dose: 20 mg Documented By: YURY Guaifenesin/Dextromethorphan (Guaifenesin Dm 600/30 1 Tab Tab.Er.12h) 2 tab PO BID [facility] Last Admin: 03/06/24 07:32 Dose: 2 tab Documented By: YURY Doxycycline Hyclate 100 mg/ (Sodium Chloride) 250 mls @ 166.67 mls/hr IV Q12H [facility] Last Infusion: 03/06/24 01:29 Dose: Infused Documented By: ELISA Magnesium Hydroxide (Milk Of Magnesia 30 Ml Oral.Susp) 30 ml PO DAILY PRN PRN Reason: Constipation Last Admin: 03/05/24 11:13 Dose: 30 ml Documented By: DENISA Comments: Okay to give early per Silvana Ventura NP Melatonin (Melatonin 3 Mg Tablet) 6 mg PO BEDTIME PRN PRN Reason: Insomnia Methylprednisolone Sodium Succinate (Methylprednisolone Sod Succ 40 Mg/Ml Vial) 40 mg IVPUSH Q12H [facility] Last Admin: 03/06/24 07:33 Dose: 40 mg Documented By: YURY Naproxen (Naproxen 250 Mg Tablet) 250 mg PO BID [facility] Last Admin: 03/06/24 07:33 Dose: 250 mg Documented By: YURY Nicotine Polacrilex (Nicotine Polacrilex 2 Mg Gum) 2 mg BUCCAL Q1H PRN PRN Reason: Nicotine Cravings Ondansetron HCl (Ondansetron Hcl 4 Mg/2 Ml Vial) 4 mg IVPUSH Q8H PRN PRN Reason: Nausea and Vomiting Prazosin HCl (Prazosin Hcl 1 Mg Capsule) 1 mg PO BID [facility]; Protocol Last Admin: 03/06/24 07:33 Dose: 1 mg Documented By: YURY Senna (Sennosides 8.6 Mg Tablet) 17.2 mg PO DAILY PRN PRN Reason: Constipation Last Admin: 03/05/24 17:03 Dose: 17.2 mg Documented By: YURY Sodium Biphosphate/Sodium Phosphate (Sodium Phosphate,[place]-Dibasic 133 Ml Enema) 133 ml [place] ONCE PRN PRN Reason: Constipation Sodium Chloride (0.9 % Sodium Chloride Flush 3 Ml Syringe) 3 ml IVFLUSH QSHIFT [facility] Last Admin: 03/06/24 07:33 Dose: 3 ml Documented By: YURY Labs 03/05/24 05:34 03/05/24 05:34 Assessment and Plan (1) Acute exacerbation of chronic obstructive pulmonary disease: Status: Acute Plan 63 yo female with PMH of asthma in childhood, COPD (not on home oxygen), CRISS (uses cPAP), daily smoker, anxiety and depression, here with acute respiratory failure secondary to COPD exacerbation. Acute hypoxic respiratory failure secondary to acute COPD exacerbation Still with exp wheezing and sob with ambulation Oxygen supplementation as required, goal >90% continue Bronchodilators and Solumedrol IV Doxycycline New diabetes type 2, diet controlled reported by patient A1C 6.0, no additional interventions at this time continue diabetic diet hyperglycemia from steroid use CRISS continue home CPAP Smoking encourage cessation NRT Anxiety and depression no acute exacerbation continue home meds no new interventions required Morbid obesity. BMI 43.3 Discussed importance of weight management as this may be contributing to worsening of other comorbidities DVT: Lovenox subcu Code status: Full code Quality Stroke Does the patient have a stroke diagnosis?: No VTE Prior VTE?: No VTE Risk Level:: Medical - moderate - high VTE Device Contraindication: Treatment Not Indicated VTE Drug Contraindication: N/A - Med Ordered
[2024-03-06 10:29] LABS: VBG Base Excess 14.8 mmol/L; VBG HCO3 41 mmol/L (22-26); VBG pCO2 58 mmHg; VBG pH 7.46 (7.32-7.43); VBG pO2 76 mmHg
[2024-03-06 10:30] LABS: Venous Blood Gas Refer to POC result
[2024-03-06 10:45] LABS: D Dimer High Sensitivity < 150 NG/ML
[2024-03-06 10:48] LABS: B Type Natriuretic Peptide 59 pg/mL (<100)
[2024-03-06] MEDS: Enoxaparin Sodium 40 MG/0.4 ML SYRINGE SUBCUT (11:41)
[2024-03-06] MEDS: Doxycycline Hyclate 100 MG in 0.9 % Sodium Chloride 250 ML 166.67 MG IV ×2 (11:43→23:50)
[2024-03-06] MEDS: Milk of Magnesia 30 ML ORAL.SUSP PO (15:15)
--- NOTE | 2024-03-06 16:02 | MHC.CM.PN ---
PER ROUNDS PT NOT MEDICALLY READY FOR DC DC PLAN REMAINS FOR HOME
[2024-03-06] MEDS: Divalproex Sodium ER 500 MG TAB.ER.24H 1000 MG PO (20:24)
[2024-03-06] MEDS: guaiFENesin LA 600 MG TAB.ER.12H 1200 MG PO (20:25)
[2024-03-07] VITALS (9 sets, daily range): BP systolic 117–145; BP diastolic 59–94; PULSE 63–79; RESP 16–20; TEMP 36.1–36.7; O2SAT 92–95
[2024-03-07] MEDS: Albuterol Sulfate (0.083%) 2.5 MG/3 ML VIAL.NEB INHALE ×4 (08:15→18:42)
[2024-03-07] MEDS: ARIPiprazole 30 MG TABLET PO (09:22)
[2024-03-07] MEDS: NaPROXEN 250 MG TABLET PO ×2 (09:22→19:53)
[2024-03-07] MEDS: methylPREDNISolone Sod Succ 40 MG/ML VIAL IVPUSH ×2 (09:22→19:53)
[2024-03-07] MEDS: Atorvastatin Calcium 10 MG TABLET PO (09:23)
[2024-03-07] MEDS: guaiFENesin LA 600 MG TAB.ER.12H 1200 MG PO ×2 (09:23→19:52)
[2024-03-07] MEDS: Furosemide 20 MG TABLET PO (09:23)
[2024-03-07] MEDS: Docusate Sodium 100 MG CAPSULE PO ×2 (09:23→19:53)
[2024-03-07] MEDS: Prazosin HCL 1 MG CAPSULE PO ×2 (09:23→19:53)
[2024-03-07] MEDS: Escitalopram Oxalate 10 MG TABLET PO (09:23)
[2024-03-07] MEDS: Sennosides 8.6 MG TABLET 17.2 MG PO (10:18)
[2024-03-07] MEDS: polyethylene glycoL 3350 17 GM POWD.PACK PO (11:53)
[2024-03-07] MEDS: Enoxaparin Sodium 40 MG/0.4 ML SYRINGE SUBCUT (11:54)
[2024-03-07 12:11] LABS: Adenovirus PCR Not Detected (Not Detect.); Bordetella parapertussis PCR Not Detected (Not Detect.); Bordetella pertussis PCR Not Detected (Not Detect.); Chlamydia pneumoniae PCR Not Detected (Not Detect.); Coronavirus 229E PCR Not Detected (Not Detect.); Coronavirus HKU1 PCR Not Detected (Not Detect.); Coronavirus NL63 PCR Not Detected (Not Detect.); Coronavirus OC43 PCR Not Detected (Not Detect.); Human metapneumovirus PCR Not Detected (Not Detect.); Influenza A PCR Not Detected (Not Detect.); Influenza B PCR Not Detected (Not Detect.); Mycoplasma pneumoniae PCR Not Detected (Not Detect.); Parainfluenza 1 PCR Not Detected (Not Detect.); Parainfluenza 2 PCR Not Detected (Not Detect.); Parainfluenza 3 PCR Not Detected (Not Detect.); Parainfluenza 4 PCR Not Detected (Not Detect.); RSV PCR Not Detected (Not Detect.); Rhino/Enterovirus PCR Not Detected (Not Detect.)
[2024-03-07 12:20] LABS: SARS-CoV-2 PCR Not Detected (Not Detect.)
[2024-03-07] MEDS: Doxycycline Monohydrate 100 MG CAPSULE PO ×2 (13:19→22:15)
[2024-03-07] MEDS: iohexoL 350 MG/ML 75 ML INFUS..BTL 65 ML IV (14:14)
--- NOTE | 2024-03-07 15:37 | HO.PM.IMPN ---
Subjective Subjective Date of Service: 03/07/24 Interval History: Seen and examined this morning Follow-up for respiratory failure Still reporting cough, shortness of breath reports recent contact with son who has viral illness Review of Systems Review of Systems: Yes all other systems are reviewed and are negative Constitutional Constitutional: Denies chills and Denies fever(s) Cardiovascular Cardiovascular: Denies chest pain and Reports dyspnea Respiratory Respiratory: Reports cough and Reports dyspnea Gastrointestinal Gastrointestinal: Denies abdominal pain Physical Exam Vital Signs: Vital Signs: Last Vital Signs Temp 97 F 03/07/24 15:23 Pulse 75 03/07/24 15:23 Resp 16 03/07/24 15:23 BP 145/65 H 03/07/24 15:23 Pulse Ox 93 03/07/24 15:23 O2 Del Method Nasal Cannula 03/07/24 15:23 O2 Flow Rate 3 03/07/24 15:23 BMI result Body Mass Index 43.6 Const: General: cooperative, comfortable, no acute distress, alert and awake Nutritional Appearance: obese Orientation/consciousness: patient oriented x3 Resp: Other: diminished, no significant wheeze Effort & Inspection: normal respiratory effort, able to speak in complete sentences, no respiratory distress and no use of accessory muscles Cardio: Rate: regular rate GI: Inspection: No distended Palpation (GI): Soft to palpation and nontender Neuro: General: patient oriented x3, moves all extremities and CN's II-XI intact bilaterally Extrem: General: Yes no pedal edema Objective Data Active Medications Acetaminophen (Acetaminophen 325 Mg Tablet) 650 mg PO Q6H PRN PRN Reason: Pain, Mild (Pain Scale 1-3), fever or headache Albuterol Sulfate (Albuterol Sulfate (0.083%) 2.5 Mg/3 Ml Vial.Neb) 2.5 mg INHALE RQ4H WHILE AWAKE [facility] Last Admin: 03/07/24 15:07 Dose: 2.5 mg Documented By: KARTHIKEYAN Aripiprazole (Aripiprazole 30 Mg Tablet) 30 mg PO DAILY [facility] Last Admin: 03/07/24 09:22 Dose: 30 mg Documented By: SPENSER Atorvastatin Calcium (Atorvastatin Calcium 10 Mg Tablet) 10 mg PO DAILY [facility] Last Admin: 03/07/24 09:23 Dose: 10 mg Documented By: SPENSER Calcium Carbonate (Calcium Carbonate 750 Mg Tab.Chew) 750 mg PO Q4H PRN PRN Reason: Heartburn Last Admin: 03/05/24 17:36 Dose: 750 mg Documented By: YURY Divalproex Sodium (Divalproex Sodium Er 500 Mg Tab.Er.24h) 1,000 mg PO BEDTIME [facility] Last Admin: 03/06/24 20:24 Dose: 1,000 mg Documented By: ROCCO Docusate Sodium (Docusate Sodium 100 Mg Capsule) 100 mg PO BID [facility] Last Admin: 03/07/24 09:23 Dose: 100 mg Documented By: SPENSER Doxycycline Monohydrate (Doxycycline Monohydrate 100 Mg Capsule) 100 mg PO Q12H [facility] Enoxaparin Sodium (Enoxaparin Sodium 40 Mg/0.4 Ml Syringe) 40 mg SUBCUT Q24H [facility] Last Admin: 03/07/24 11:54 Dose: 40 mg Documented By: SPENSER Escitalopram Oxalate (Escitalopram Oxalate 10 Mg Tablet) 10 mg PO DAILY [facility] Last Admin: 03/07/24 09:23 Dose: 10 mg Documented By: SPENSER Furosemide (Furosemide 20 Mg Tablet) 20 mg PO DAILY [facility]; Protocol Last Admin: 03/07/24 09:23 Dose: 20 mg Documented By: SPENSER Guaifenesin (Guaifenesin La 600 Mg Tab.Er.12h) 1,200 mg PO BID [facility] Last Admin: 03/07/24 09:23 Dose: 1,200 mg Documented By: SPENSER Magnesium Hydroxide (Milk Of Magnesia 30 Ml Oral.Susp) 30 ml PO DAILY PRN PRN Reason: Constipation Last Admin: 03/06/24 15:15 Dose: 30 ml Documented By: YURY Melatonin (Melatonin 3 Mg Tablet) 6 mg PO BEDTIME PRN PRN Reason: Insomnia Methylprednisolone Sodium Succinate (Methylprednisolone Sod Succ 40 Mg/Ml Vial) 40 mg IVPUSH Q12H [facility] Last Admin: 03/07/24 09:22 Dose: 40 mg Documented By: SPENSER Naproxen (Naproxen 250 Mg Tablet) 250 mg PO BID [facility] Last Admin: 03/07/24 09:22 Dose: 250 mg Documented By: SPENSER Nicotine Polacrilex (Nicotine Polacrilex 2 Mg Gum) 2 mg BUCCAL Q1H PRN PRN Reason: Nicotine Cravings Ondansetron HCl (Ondansetron Hcl 4 Mg/2 Ml Vial) 4 mg IVPUSH Q8H PRN PRN Reason: Nausea and Vomiting Polyethylene Glycol (Polyethylene Glycol 3350 17 Gm Powd.Pack) 17 gm PO DAILY [facility] Last Admin: 03/07/24 11:53 Dose: 17 gm Documented By: SPENSER Prazosin HCl (Prazosin Hcl 1 Mg Capsule) 1 mg PO BID [facility]; Protocol Last Admin: 03/07/24 09:23 Dose: 1 mg Documented By: SPENSER Senna (Sennosides 8.6 Mg Tablet) 17.2 mg PO DAILY PRN PRN Reason: Constipation Last Admin: 03/07/24 10:18 Dose: 17.2 mg Documented By: SPENSER Sodium Biphosphate/Sodium Phosphate (Sodium Phosphate,Dickens-Dibasic 133 Ml Enema) 133 ml MT ONCE PRN PRN Reason: Constipation Sodium Chloride (0.9 % Sodium Chloride Flush 3 Ml Syringe) 3 ml IVFLUSH QSHIFT [facility] Last Admin: 03/07/24 09:23 Dose: Not Given Documented By: SPENSER Non-Admin Reason: Previously Administered Labs 03/05/24 05:34 03/05/24 05:34 Labs: Laboratory Results - last 24 hr 03/07/24 10:57 Respiratory Panel Garcia See Note Adenovirus (Rapid PCR) Not Detected B.pert (TEM-PCR) Not Detected B.parapertussis DNA PCR Not Detected C. pneumoniae DNA (PCR) Not Detected Coronavirus OC43 (PCR) Not Detected Coronavirus HKU1 (PCR) Not Detected Coronavirus 229E (PCR) Not Detected Coronavirus NL63 (PCR) Not Detected Human Metapneumovir PCR Not Detected Influenza A (RT-PCR) Not Detected Influenza B (RT-PCR) Not Detected M. pneumoniae (PCR) Not Detected Parainfluenza 1 (PCR) Not Detected Parainfluenza 2 (PCR) Not Detected Parainfluenza 3 (PCR) Not Detected Parainfluenza 4 (PCR) Not Detected RSV (PCR) Not Detected Entero/Rhino (PCR) Not Detected SARS-CoV-2 RNA (RT-PCR) Not Detected Assessment and Plan (1) Hypoxia: Status: Acute Plan 63 yo female with PMH of asthma in childhood, COPD (not on home oxygen), CRISS (uses cPAP), daily smoker, anxiety and depression, here with acute respiratory failure secondary to COPD exacerbation. Acute hypoxic respiratory failure secondary to acute COPD exacerbation ongoing dyspnea still requiring supplemental oxygen, not on o2 at baseline (does use nocturnal o2 for criss) continue Bronchodilators and Solumedrol, doxycycline RPP negative CTA pending to rule out alternative causes of hypoxia/dyspnea BNP negative New diabetes type 2, diet controlled reported by patient A1C 6.0, no additional interventions at this time continue diabetic diet hyperglycemia from steroid use CRISS continue home CPAP Smoking encourage cessation NRT Anxiety and depression continue home meds Morbid obesity. BMI 43.3 Discussed importance of weight management as this may be contributing to worsening of other comorbidities DVT: Lovenox subcu Code status: Full code Quality Stroke Does the patient have a stroke diagnosis?: No VTE Prior VTE?: No VTE Risk Level:: Medical - moderate - high VTE Device Contraindication: Treatment Not Indicated VTE Drug Contraindication: N/A - Med Ordered
[2024-03-07 16:32] LABS: Glucose, Whole Blood 131 mg/dL (60-115)
[2024-03-07 19:50] LABS: Glucose, Whole Blood 151 mg/dL (60-115)
[2024-03-07] MEDS: Divalproex Sodium ER 500 MG TAB.ER.24H 1000 MG PO (19:53)
[2024-03-07] MEDS: 0.9 % Sodium Chloride Flush 3 ML SYRINGE IVFLUSH (19:58)
[2024-03-08] VITALS (8 sets, daily range): BP systolic 117–129; BP diastolic 56–67; PULSE 58–92; RESP 14–18; TEMP 36.1; O2SAT 85–96
[2024-03-08] MEDS: polyethylene glycoL 3350 17 GM POWD.PACK PO (08:16)
[2024-03-08] MEDS: Albuterol Sulfate (0.083%) 2.5 MG/3 ML VIAL.NEB INHALE ×2 (08:16→11:36)
[2024-03-08] MEDS: Docusate Sodium 100 MG CAPSULE PO (08:17)
[2024-03-08] MEDS: Atorvastatin Calcium 10 MG TABLET PO (08:17)
[2024-03-08] MEDS: Prazosin HCL 1 MG CAPSULE PO (08:17)
[2024-03-08] MEDS: NaPROXEN 250 MG TABLET PO (08:17)
[2024-03-08] MEDS: guaiFENesin LA 600 MG TAB.ER.12H 1200 MG PO (08:18)
[2024-03-08] MEDS: Furosemide 20 MG TABLET PO (08:19)
[2024-03-08] MEDS: ARIPiprazole 30 MG TABLET PO (08:19)
[2024-03-08] MEDS: Escitalopram Oxalate 10 MG TABLET PO (08:19)
[2024-03-08] MEDS: 0.9 % Sodium Chloride Flush 3 ML SYRINGE IVFLUSH (08:28)
[2024-03-08] MEDS: predniSONE 20 MG TABLET 40 MG PO (11:07)
[2024-03-08] MEDS: Doxycycline Monohydrate 100 MG CAPSULE PO (11:07)
[2024-03-08] MEDS: Enoxaparin Sodium 40 MG/0.4 ML SYRINGE SUBCUT (11:07)
--- NOTE | 2024-03-08 12:59 | P.DS_ITS ---
DS: Providers Provider Date of Service: 03/08/24 Date of admission: 03/04/24 11:22 Date of discharge: 03/08/24 Primary care physician: Arti Peña MD Attending physician on discharge: Hai Harris Discharging clinician: Gina Lee DS: Diagnosis Discharge Diagnosis (1) Hypoxia: Status: Acute DS: Summary Hospital Course Hospital Course: From H&P on the day of admission 63 yo female who has a PMH of asthma in childhood, COPD (not on home oxygen), CRISS (uses cPAP), smokes cigarettes daily, smokes marijuana weekly, anxiety and depression, who presents via EMS from PCP office for hypoxia. Pt reports went to PCP office for labs and was noted to be hypoxic on assessment, states she has been having increased work of breathing, productive cough and wheeze x 3 days. States it is best during the day, but at night becomes worse, has been using her inhalers at home to no avail, no other alleviating factors tried. Has been unable to tolerate smoking x 2 days, although tried today prior to arrival and yesterday as well. Reports possible sick contact, son also has URI symptoms similar to hers. Denies any hemoptysis, N/V/D, fever, chills or chest pain, denies any lightheaded or dizziness. Endorses some congestion in her chest. Acute hypoxic respiratory failure secondary to acute COPD exacerbation Treated with systemic steroids and breathing treatments. Respiratory pathogen panel negative. CTA with no additional cause of hypoxia. BNP negative. still requiring supplemental oxygen, not on o2 at baseline (does use nocturnal o2 for criss). had home oxygen evaluation - will require 2L supplemental oxygen on discharge. overall breathing and cough has improved significantly and she is eager to return home. New diabetes type 2, diet controlled A1C 6.0, continue diabetic diet CRISS continue home CPAP Smoking smoking cessation recommended Time Attestation Discharge Coordination Time (in mins): 40 Quality: Safe Use of Opioids Does Pt have an Active Cancer Diagnosis on the Problem List?: No Quality: Stroke Does the patient have a stroke diagnosis?: No Physical Exam Vital Signs: Vital Signs: Last Vital Signs Temp 97 F 03/08/24 07:12 Pulse 58 03/08/24 11:37 Resp 14 03/08/24 11:37 BP 127/67 03/08/24 08:19 Pulse Ox 93 03/08/24 07:12 O2 Del Method Room Air 03/08/24 07:12 O2 Flow Rate 3 03/07/24 19:01 BMI result Body Mass Index 43.6 Const: General: cooperative, comfortable, no acute distress, alert and awake Nutritional Appearance: obese Orientation/consciousness: patient oriented x3 Resp: Other: diminished, no significant wheeze Effort & Inspection: normal respiratory effort, able to speak in complete sentences, no respiratory distress and no use of accessory muscles Cardio: Rate: regular rate GI: Inspection: No distended Palpation (GI): Soft to palpation and nontender Neuro: General: patient oriented x3, moves all extremities and CN's II-XI intact bilaterally Extrem: General: Yes no pedal edema DS: Data Data Completed and Pending Labs on day of discharge: Laboratory Results - last 24 hr 03/07/24 03/07/24 16:29 19:09 POC Glucose 131 H 151 H Discharge Plan Discharge Anticipated Discharge Date/Time: 03/08/24 13:10 Patient Disposition: Home, Self-Care Discharge Diagnosis: acute copd exacerbation Referrals: Arti Peña MD [Primary Care Provider] - 1 Week Cash Ventura MD [Physician] - 1 Month Discharge Medications: New prednisone 20 mg tablet 40 mg PO DAILY 5 Days Qty: 10 0RF doxycycline monohydrate 100 mg tablet 100 mg PO BID 3 Days Qty: 6 0RF Continued atorvastatin 10 mg tablet 10 mg PO DAILY prazosin 1 mg capsule 1 mg PO BID citalopram 20 mg tablet 20 mg PO DAILY divalproex 500 mg tablet extended release 24 hr 1,000 mg PO BEDTIME furosemide 20 mg tablet 20 mg PO DAILY albuterol sulfate 90 mcg/actuation HFA aerosol inhaler 1 puff inhalation Q4H PRN (Reason: Shortness Of Breath Or Wheezing) aripiprazole 30 mg tablet 30 mg PO DAILY fluticasone furoate-vilanterol [Breo Ellipta] 200-25 mcg/dose blister with device 1 ea inhalation DAILY Spiriva Respimat 1.25 mcg/actuation mist 2 puff inhalation DAILY meloxicam 7.5 mg tablet 7.5 mg PO DAILY Discharge Orders: Discharge Order (Routine); Ordered 03/08/24 Ordered By: Gina Lee Activity on Discharge: As tolerated Stand Alone Forms: Patient Portal Discharge page Print Language: Nepalese Care Plan Goals: see below Health Concerns: acute copd exacerbation Plan of Treatment: complete course of antibiotics and steroids as prescribed You qualify for 2 L of supplemental oxygen during the day, continue previous 3 L of supplemental oxygen at night with CPAP Consider outpatient follow-up with pulmonology Assessment: see discharge summary
--- NOTE | 2024-03-08 13:22 | MHC.CM.PN ---
pt dcd home self care
== END 2024-03-08 13:37 | disposition home or self-care (01) | DRG 190 ==
LOC: HO.ED 11:01 → HO.EDOVER 13:04 → HO.S3 19:20
PROVIDERS: Admitting Provider Nurse Practitioner Acute Care; Emergency Provider Emergency Medicine; PCP Family Medicine; Visit Provider Physician Assistant Medical
DX: J44.1 Chronic obstructive pulmonary disease with (acute) exacerbation (principal); J96.01 Acute respiratory failure with hypoxia; Z68.41 Body mass index [BMI] 40.0-44.9, adult; F17.210 Nicotine dependence, cigarettes, uncomplicated; G47.33 Obstructive sleep apnea (adult) (pediatric); E11.9 Type 2 diabetes mellitus without complications; F41.9 Anxiety disorder, unspecified; F32.A Depression, unspecified; E66.01 Morbid (severe) obesity due to excess calories; Z71.3 Dietary counseling and surveillance; Z20.822 Contact with and (suspected) exposure to COVID-19; Z71.6 Tobacco abuse counseling; Z79.51 Long term (current) use of inhaled steroids; Z79.899 Other long term (current) drug therapy
CPT/HCPCS: 0241U; 36415; 71045; 71275; 80048; 80053; 82803; 82947; 83036; 83735; 83880; 84484; 85007; 85025; 85027; 85379; 87633; 93005; 94640; 94660; 99285; J1650; J2919; Q9967

== ENCOUNTER → 2024-03-04 10:00 | Outpatient (BNV) | payer MEDICARE, MEDICAID, SELFPAY | PROVIDERS: Admitting Provider Nurse Practitioner Acute Care; Emergency Provider Emergency Medicine; PCP Family Medicine; Visit Provider Internal Medicine Cardiovascular Disease | DX: R07.9 Chest pain, unspecified (principal) | CPT/HCPCS: 93010 ==

== ENCOUNTER → 2024-03-04 11:22 | Outpatient (BNV) | payer MEDICARE, MEDICAID, SELFPAY | PROVIDERS: Admitting Provider Nurse Practitioner Acute Care; Emergency Provider Emergency Medicine; PCP Family Medicine; Visit Provider Nurse Practitioner Acute Care | DX: J44.1 Chronic obstructive pulmonary disease with (acute) exacerbation (principal); J96.01 Acute respiratory failure with hypoxia | CPT/HCPCS: 99223; 99232 ==